=== PATIENT | female | born 1955 | race Caucasian/White ===

== ENCOUNTER → 2022-01-03 | Outpatient (CLI) | payer MEDICARE, OTHER, SELFPAY ==
--- NOTE | 2022-01-03 12:00 | US_ITS ---
STUDY: RENAL ULTRASOUND - COMPLETE REASON FOR EXAM: Female, 66 years old. UTI -- FREQUENCY -- URGENCY TECHNIQUE: Ultrasound evaluation of the kidneys was performed with real-time and static melgar-scale imaging. COMPARISON: None. FINDINGS: RIGHT KIDNEY: Normal location of the right kidney, which is normal in size. The right kidney measures 10.6 cm x 5.6 x 4.5 cm. There is a normal cortex of the right kidney. The renal cortex measures 1.4 cm. There is no right renal mass or cyst. There are no right renal calculi. There is an extra-renal pelvis of the right kidney. There is no distention of the renal calyces. DISTAL RIGHT URETER: There is non-visualization of the distal right ureter. There is no demonstrated right ureterovesical junction calculus. There is a visualized right ureteral jet. LEFT KIDNEY: Normal location of the left kidney, which is normal in size. The left kidney measures 10.4 cm x 5 cm x 5.9 cm. There is a normal cortex of the left kidney. The renal cortex measures 1.8 cm. There is no left renal mass or cyst. 3 mm nonobstructive calculus. There is no left hydronephrosis. DISTAL LEFT URETER: There is non-visualization of the distal left ureter. There is no demonstrated left ureterovesical junction calculus. There is a visualized left ureteral jet. BLADDER: The distended urinary bladder has a volume of 375.6 ml. The empty urinary bladder has a volume of 45 ml. There is a normal wall thickness of the distended urinary bladder. There is no demonstrated mass within the urinary bladder. There are no demonstrated bladder calculi. US/Kidney and Bladder IMPRESSION: 3 mm nonobstructive calculus in the left kidney. Electronically Signed: Orlin Seaman MD at 14:18 EDT ,
== END | disposition home or self-care (01) ==
PROVIDERS: PCP Internal Medicine Geriatric Medicine; Referring Provider Urology; Visit Provider Urology
DX: N39.0 Urinary tract infection, site not specified (principal)
CPT/HCPCS: 76770

== ENCOUNTER 2022-01-11 10:16 | Day surgery (SDC) | payer MEDICARE, OTHER, SELFPAY ==
--- NOTE | 2022-01-11 10:37 | DCINST_ITS ---
Discharge Instructions Diet Discharge Diet: No restrictions Activity Discharge Activity: Return to Normal Activity May resume sexual activity in: No Restrictions Dressing / Incision Call your doctor if you observe: Fever of 101 or Higher, Inability to urinate and Inability to have a bowel movement Follow Up Care Please Follow Up With: Lizeth Castillo MD When: call office for appt Test Results: Test results from this visit will be discussed in further detail at your follow- up appointment, if applicable. Discharge Plan Admission Attending Provider: Lizeth Castillo Primary Care Provider: Cesilia Hernandez Discharge Orders/Prescriptions Prescriptions: Continued meloxicam [Mobic] 15 mg Tablet 15 mg PO DAILY omeprazole 20 mg Capsule,Delayed Release(Dr/Ec) 20 mg PO DAILY rosuvastatin [Crestor] 5 mg Tablet 5 mg PO QHS cholecalciferol (vitamin D3) [Vitamin D3] 50 mcg (2,000 unit) Capsule 50 mcg PO DAILY acidophilus-pectin, citrus 100 million cell-10 mg Capsule 1 cap PO DAILY PreserVision AREDS-2 250-90-40-1 mg Capsule 2 tab PO DAILY Gemtesa 75 mg Tablet 75 mg PO DAILY Referrals / Follow Up: Cesilia Hernandez MD [Primary Care Provider] - Disposition Disposition (needs filled in before D/C Order can be placed): Home, Self Care
--- NOTE | 2022-01-11 10:38 | OP.PCM_ITS ---
Report of Operation Date of Procedure: 01/11/22 Pre-Operative Diagnosis: Urinary tract infections, overactive bladder, incontin ence and prolapse Post-Operative Diagnosis: Same Surgery/Procedure Performed:: Cystoscopy, pelvic exam under anesthesia Surgeon: Lizeth Castillo Type of Anesthesia: MAC Description of Procedure: The patient is a 66-year-old female with recurrent urinary tract infections, overactive bladder and incontinence. She is unable to undergo a cystoscopic evaluation in the office and presents for evaluation under anesthesia. Informed consent was obtained. The patient was taken to the operating room and placed onto the operating room table. Anesthesia monitored the head, neck, airway, IV access and vital signs throughout the case. Once anesthesia was appropriately ministered, the patient was placed into dorsal lithotomy position was prepped and draped in usual sterile fashion. Pelvic exam revealed stage 2 prolapse with cystocele, rectocele and vault prolapse. No evidence of pelvic mass, no stool palpable in the rectal vault, and there is vaginal atrophy present. The cystoscope was inserted through the urethra under direct visualization into the urinary bladder. The ureteral orifices were located in the correct anatomic position in the area of the trigone. The bladder mucosa was visualized in its entirety and found to be without evidence of mass, erythema, ulceration or foreign body. At this time the bladder was emptied and the case was terminated. The patient was awakened and taken to the recovery room in good condition. There were no complications during this procedure. Grafts/Implants Used: None Complications None Admit VTE Documentation VTE Present on Admission: Yes VTE Mechan Device Prophylaxis: SCD's VTE Pharm Prophylaxis ordered?: No Reason prophylaxis not ordered:: Treatment Not Indicated
[2022-01-11 10:45] VITALS: BP 143/88; PULSE 61; RESP 16; TEMP 36.2; O2SAT 100; BMI 33.0
[2022-01-11] MEDS: Lactated Ringers 1,000 ML 15 ML IV (10:48)
[2022-01-11] MEDS: Cefazolin 2 GM in 0.9% Normal Saline 100 ML IV (11:24)
[2022-01-11 11:35] LABS: Bedside Glucose 112 mg/dL (74-106)
[2022-01-11 11:45] VITALS: BP 109/50; BP 143/88; PULSE 62; RESP 16; TEMP 36.3; O2SAT 93
[2022-01-11 11:50] VITALS: BP 115/57; BP 143/88; PULSE 62; RESP 16; O2SAT 95
[2022-01-11 11:55] VITALS: BP 121/60; BP 143/88; PULSE 60; RESP 16; O2SAT 95
[2022-01-11 12:00] VITALS: BP 117/55; BP 143/88; PULSE 58; RESP 16; TEMP 36.4; O2SAT 95
[2022-01-11 12:17] VITALS: BP 143/88
== END 2022-01-11 12:26 | disposition home or self-care (01) ==
LOC: SDC 10:18 → AC 10:19
PROVIDERS: PCP Internal Medicine Geriatric Medicine; Referring Provider Urology; Visit Provider Urology
PROC: 0TJB8ZZ Inspection of Bladder, Via Natural or Artificial Opening Endoscopic (ICD-10-PCS; CPT 52000; principal; 2022-01-11 11:35)
DX: N39.0 Urinary tract infection, site not specified (principal); E11.9 Type 2 diabetes mellitus without complications; Z80.0 Family history of malignant neoplasm of digestive organs; N81.11 Cystocele, midline; N81.6 Rectocele; N39.41 Urge incontinence; N95.2 Postmenopausal atrophic vaginitis
CPT/HCPCS: 52000; 57410; 00910; 82962; J7120; J2405

== ENCOUNTER 2023-03-14 09:20 | Observation (INO) | payer MEDICARE, OTHER, SELFPAY ==
[2023-02-28 09:47] LABS: Hemoglobin A1c 6.6 % (3.8-5.6)
[2023-02-28 10:02] LABS: Anion Gap 4 (5-15); BUN 20 mg/dL (7-18); BUN/Creat Ratio 30.2 RATIO (10-20); Calcium,Total 9.3 mg/dL (8.5-10.1); Chloride 105 mmol/L (98-107); Creatinine, Serum 0.66 mg/dL (0.55-1.02); EST Glomerular Filtration Rate 95 mL/min (>60); Est Glom Filt Rate - Afr Amer 114 mL/min (>60); Glucose 170 mg/dL (74-106); Potassium 3.7 mmol/L (3.5-5.1); Sodium Level 137 mmol/L (136-145)
[2023-03-14] VITALS (15 sets, daily range): BP systolic 133–165; BP diastolic 56–91; PULSE 59–72; RESP 14–18; TEMP 36.1–37; O2SAT 92–97; BMI 34.9
--- NOTE | 2023-03-14 09:19 | OP.PCM_ITS ---
Report of Operation Date of Procedure: 03/14/23 Pre-Operative Diagnosis: Cystocele, rectocele, vaginal vault prolapse, urethral hypermobility with stress incontinence Post-Operative Diagnosis: Same Surgery/Procedure Performed:: posterior repair, bilateral sacrospinous ligament fixation with dermis, cystoscopy with bilateral ureteral catheterization Surgeon: Lizeth Castillo Type of Anesthesia: General Estimated Blood Loss (mL): 20 cc Description of Procedure: The patient is a 67-year-old female with pelvic organ prolapse who presents for surgical intervention. Informed consent and work-up were done in the office. The patient was taken to the operating room and placed on the operating room table. Anesthesia monitored the head, neck, airway, IV access and vital signs throughout the case. Once anesthesia was appropriately administered, the patient was placed into exaggerated dorsolithotomy and Trendelenburg position. She was prepped and draped in usual sterile fashion. A Waldron catheter was inserted to straight drain and the bladder was emptied. The biggest portion of her prolapse was identified posteriorly. It was decided to proceed there first with sacrospinous ligament fixation using dermis. A midline incision was made following submucosal injection of lidocaine with epinephrine. Blunt and sharp dissection was performed bilaterally until the ischial spines were palpable on both sides. On the patient's right side the ureter was easily palpable. Neither one of her sacrospinous ligaments were of significant size and there was a lot of surrounding soft tissue with vascularity. Very carefully I passed the suture through the sacrospinous ligaments using the Capio device. The ligaments were widely set apart and she did not have significant vault length available. The sutures were then brought through the dermis and through the vaginal mucosa at the apex bilaterally. These were tied into position and the dermis was sutured to the apex using interrupted 2-0 Vicryl. The perineal body was reconstructed and brought together in interrupted fashion using 3-0 PDS. The dermis was positioned and sutured in place circumferentially. The vaginal incision was then closed with running interlocking 2-0 Vicryl. At this time the Waldron catheter was removed and a cystourethroscopy was performed. The cystoscope was inserted through the urethra under direct visualization. Bilateral ureteral orifices were clearly visible in the correct anatomic position. A 5 [place] whistle-tip catheter was used to gently cannulate each ureteral orifice and it was advanced without difficulty on both sides to 20 cm without evidence of injury or obstruction. The midline of the bladder did not suggest a significant cystocele defect at this time. The anatomy anteriorly suggested that the patient would require further vault support for improvement in her anterior prolapse and I was not able to give her any further length via sacrospinous fixation. It was my opinion at this point that the bladder neck was well supported. The anterior repair and sling were not performed at this time. I feel she will be better served to have a sacrocolpopexy for any further improvement in her anterior pelvic support. At this time the cystoscope was removed and the Waldron catheter was reinserted. Her vagina was packed with Premarin cream and vaginal packing. She was awakened and taken to the recovery room in good condition. There were no complications during this procedure. Grafts/Implants Used: Dermis Complications None Admit VTE Documentation VTE Present on Admission: Yes VTE Mechan Device Prophylaxis: SCD's VTE Pharm Prophylaxis ordered?: Yes
[2023-03-14] MEDS: Lactated Ringers 1,000 ML 15 ML IV (09:30)
[2023-03-14 09:55] LABS: Bedside Glucose 118 mg/dL (74-106)
[2023-03-14] MEDS: Cefazolin 2 GM in 0.9% Normal Saline (100mL Bag) 100 ML IV (10:23)
[2023-03-14] MEDS: Lidocaine 1% /Epi 1:100 (20ml) 20 ML Vial (10:45)
[2023-03-14] MEDS: Estrogens,Conj. 1 Tube 1 DOSE (11:46)
[2023-03-14 13:20] LABS: Bedside Glucose 212 mg/dL (74-106)
[2023-03-14] MEDS: Lactated Ringers 1,000 ML 100 ML IV (17:03)
[2023-03-14] MEDS: Ciprofloxacin 500 MG Tablet PO ×2 (17:04→22:04)
[2023-03-14] MEDS: Pantoprazole Sodium 20 MG Tablet PO (17:04)
[2023-03-14] MEDS: Meloxicam 15 MG Tablet PO (17:04)
[2023-03-14] MEDS: metFORMIN HCl 500 MG Tablet 1000 MG PO (17:11)
[2023-03-14] MEDS: Cefazolin 1 GM/50 ML BAG IV (18:23)
[2023-03-14] MEDS: Atorvastatin Calcium 10 MG Tablet PO (22:04)
[2023-03-15 01:14] VITALS: BP 138/57; PULSE 64; RESP 16; TEMP 36.4; O2SAT 95
[2023-03-15] MEDS: Cefazolin 1 GM/50 ML BAG IV (01:19)
[2023-03-15] MEDS: Lactated Ringers 1,000 ML 100 ML IV (04:13)
[2023-03-15 06:04] VITALS: BP 128/81; PULSE 66; RESP 16; TEMP 36.6; O2SAT 97
[2023-03-15] MEDS: Enoxaparin 40 MG/0.4 ML Syringe SC (06:10)
[2023-03-15 06:36] LABS: Hematocrit 38.3 % (37-47); Hemoglobin 12.7 g/dL (12.0-15.0); Mean Corp Hgb Conc 33.2 g/dL (32-36); Mean Corpuscular Hgb 28.7 pg (27.0-32.0); Mean Corpuscular Volume 86.7 fL (81-99); Mean Platelet Vol. 11.2 fl (6.2-12.0); Platelet Count 186 K/mm3 (150-450); RBC Distribution Width CV 12.2 % (11.6-14.6); RBC Distribution Width SD 38.9 fl (35.1-43.9); Red Blood Count 4.42 M/mm3 (4.2-5.4); White Blood Count 12.1 K/mm3 (4.4-11.0)
[2023-03-15 06:59] LABS: Anion Gap 8 (5-15); BUN 11 mg/dL (7-18); BUN/Creat Ratio 19.3 RATIO (10-20); Calcium,Total 8.4 mg/dL (8.5-10.1); Chloride 107 mmol/L (98-107); Creatinine, Serum 0.57 mg/dL (0.55-1.02); EST Glomerular Filtration Rate 112 mL/min (>60); Est Glom Filt Rate - Afr Amer 136 mL/min (>60); Estimated Creatinine Clearance 43.77 ml/min; Glucose 158 mg/dL (74-106); Potassium 3.7 mmol/L (3.5-5.1); Sodium Level 139 mmol/L (136-145)
--- NOTE | 2023-03-15 07:58 | DCINST_ITS ---
Discharge Instructions Diet Discharge Diet: No restrictions Activity Discharge Activity: May Shower May resume sexual activity in: 8 weeks Lifting Restrictions: No strenuous activity, no lifting over 5 pounds, no driving Additional Activity Instructions:: No swimming, hot tubs, tub bathing or sexual activity Dressing / Incision Call your doctor if your incision/area has: Continuous Slow Oozing, Sudden Increased Bleeding, Increased Pain/ Swelling and Foul Smelling Discharge Call your doctor if you observe: Fever of 101 or Higher, Inability to urinate and Inability to have a bowel movement Follow Up Care Please Follow Up With: Lizeth Castillo MD When: The office will call to make follow-up arrangements Test Results: Test results from this visit will be discussed in further detail at your follow- up appointment, if applicable. Discharge Plan Admission Admit Date/Time: 03/14/23 09:20 Attending Provider: Lizeth Castillo Primary Care Provider: Cesilia Hernandez Discharge Orders/Prescriptions Prescriptions: New hydrocodone-acetaminophen [hydrocodone-acetaminophen] 5-325 mg tablet 1 tab PO Q8H PRN (Reason: Pain) 7 Days Qty: 15 0RF ciprofloxacin HCl [ciprofloxacin HCl] 500 mg tablet 500 mg PO BID Qty: 6 0RF Continued meloxicam [Mobic] 15 mg Tablet 15 mg PO DAILY omeprazole 20 mg Capsule,Delayed Release(Dr/Ec) 20 mg PO DAILY rosuvastatin [Crestor] 5 mg Tablet 5 mg PO QHS cholecalciferol (vitamin D3) [Vitamin D3] 50 mcg (2,000 unit) Capsule 50 mcg PO DAILY acidophilus-pectin, citrus 100 million cell-10 mg Capsule 1 cap PO DAILY PreserVision AREDS-2 250-90-40-1 mg Capsule 2 tab PO DAILY Gemtesa 75 mg Tablet 75 mg PO DAILY coenzyme Q10 [Co Q-10] 100 mg capsule 100 mg PO DAILY metformin 500 mg tablet 1,000 mg PO DAILY cephalexin 500 mg capsule 500 mg PO Q8H Patient Comments: TAKE 1 CAPSULE BY MOUTH THREE TIMES DAILY prevagen 1 tab PO DAILY Referrals / Follow Up: Cesilia Hernandez MD [Primary Care Provider] - Disposition Disposition (needs filled in before D/C Order can be placed): Home, Self Care
[2023-03-15 09:02] VITALS: BP 135/74; PULSE 68; RESP 18; TEMP 36.5; O2SAT 97
[2023-03-15] MEDS: metFORMIN HCl 500 MG Tablet 1000 MG PO (09:05)
[2023-03-15] MEDS: Pantoprazole Sodium 20 MG Tablet PO (09:05)
[2023-03-15] MEDS: Meloxicam 15 MG Tablet PO (09:05)
[2023-03-15] MEDS: Ciprofloxacin 500 MG Tablet PO (09:05)
--- NOTE | 2023-03-15 14:37 | CASEMGMT ---
Social Work SW met with pt and discussed advance directives. Pt requesting additional information. SW explained living will and health care power of divorce attorney and provided written information and Advance Directive Rack Card. Pt appreciative of information and will consider. No further needs at this time. PHYLLIS Phipps
--- NOTE | 2023-03-15 14:39 | CASEMGMT ---
ELIZABETH CM in to discuss NUÑEZ form with patient. RN CM explained NUÑEZ form, patient voiced understanding. Pt signed form and filed in chart. Pt provided with a copy of signed NUÑEZ form. Patient had no further questions or concerns at this time.
[2023-03-15 15:53] VITALS: BP 137/63; PULSE 79; RESP 18; TEMP 36.6; O2SAT 97
== END 2023-03-15 16:03 | disposition home or self-care (01) ==
LOC: SDC 15:03 → MS3 15:03
PROVIDERS: Anesthesiology; Admitting Provider Urology; PCP Internal Medicine Geriatric Medicine; Referring Provider Urology; Visit Provider Urology
PROC: (CPT 57260; principal; 2023-03-14 10:00)
DX: N99.3 Prolapse of vaginal vault after hysterectomy (principal); E11.9 Type 2 diabetes mellitus without complications; N39.3 Stress incontinence (female) (male); N36.41 Hypermobility of urethra; N32.81 Overactive bladder; Z79.84 Long term (current) use of oral hypoglycemic drugs; Z79.899 Other long term (current) drug therapy
CPT/HCPCS: 57282; 57250; 00860; 36415; 80048; 82962; 83036; 85027; 93005; 96361; 96365; 96366; 96372; 99221; J7120; C1758; G0378; J2405

== ENCOUNTER → 2024-03-25 | Outpatient (CLI) | payer MEDICARE, OTHER, SELFPAY ==
[2024-03-25 12:22] LABS: Hematocrit 40.2 % (37-47); Hemoglobin 12.7 g/dL (12.0-15.0); Mean Corp Hgb Conc 31.6 g/dL (32-36); Mean Corpuscular Hgb 27.7 pg (27.0-32.0); Mean Corpuscular Volume 87.8 fL (81-99); Platelet Count 210 K/mm3 (150-450); RBC Distribution Width CV 13.3 % (11.6-14.6); RBC Distribution Width SD 42.8 fl (35.1-43.9); Red Blood Count 4.58 M/mm3 (4.2-5.4); White Blood Count 6.1 K/mm3 (4.4-11.0)
[2024-03-25 12:54] LABS: Anion Gap 8 (5-15); BUN 14 mg/dL (7-18); BUN/Creat Ratio 24.1 RATIO (10-20); Chloride 107 mmol/L (98-107); Creatinine, Serum 0.58 mg/dL (0.55-1.02); EST Glomerular Filtration Rate 110 mL/min (>60); Est Glom Filt Rate - Afr Amer 133 mL/min (>60); Glucose 121 mg/dL (74-106); Potassium 3.9 mmol/L (3.5-5.1); Sodium Level 138 mmol/L (136-145)
== END | disposition home or self-care (01) ==
LOC: MTLAB 09:35
PROVIDERS: PCP Internal Medicine Geriatric Medicine; Referring Provider Urology; Visit Provider Urology
DX: N10 Acute pyelonephritis (principal)
CPT/HCPCS: 36415; 80048; 85027

== ENCOUNTER 2024-04-03 07:33 | Observation (INO) | payer MEDICARE, OTHER, SELFPAY ==
--- NOTE | 2024-03-17 08:46 | EKG12_ITS ---
Test Reason : PREOP Blood Pressure : */* mmHG Vent. Rate : 68 BPM Atrial Rate : 68 BPM P-R Int : 154 ms QRS Dur : 86 ms QT Int : 402 ms P-R-T Axes : 42 17 38 degrees QTcB Int : 427 ms Normal sinus rhythm Low voltage QRS Borderline ECG Confirmed by ZULY VELÁSQUEZ, KULDEEP ([id number]), commissioning editor KIT GONZALEZ ([id number]) on 03/18/2024 8:47:00 AM Referred By: Lizeth Castillo Confirmed By: KULDEEP CARUSO MD
[2024-03-17 09:23] LABS: Hematocrit 40.2 % (37-47); Hemoglobin 12.7 g/dL (12.0-15.0); Mean Corp Hgb Conc 31.6 g/dL (32-36); Mean Corpuscular Hgb 27.9 pg (27.0-32.0); Mean Corpuscular Volume 88.2 fL (81-99); Platelet Count 213 K/mm3 (150-450); RBC Distribution Width CV 13.7 % (11.6-14.6); RBC Distribution Width SD 44.4 fl (35.1-43.9); Red Blood Count 4.56 M/mm3 (4.2-5.4); White Blood Count 5.6 K/mm3 (4.4-11.0)
[2024-03-17 09:52] LABS: Anion Gap 5 (5-15); BUN 17 mg/dL (7-18); BUN/Creat Ratio 28.4 RATIO (10-20); Calcium,Total 9.4 mg/dL (8.5-10.1); Chloride 110 mmol/L (98-107); EST Glomerular Filtration Rate 106 mL/min (>60); Est Glom Filt Rate - Afr Amer 128 mL/min (>60); Glucose 106 mg/dL (74-106); Potassium 4.6 mmol/L (3.5-5.1); Sodium Level 142 mmol/L (136-145)
[2024-03-17 11:33] LABS: Hemoglobin A1c 6.1 % (3.8-5.6)
[2024-04-03] VITALS (22 sets, daily range): BP systolic 107–150; BP diastolic 49–78; PULSE 63–79; RESP 16–18; TEMP 36.1–36.9; O2SAT 91–100; BMI 34.7
[2024-04-03] MEDS: Lactated Ringers 1,000 ML 15 ML IV ×2 (06:17→11:16)
[2024-04-03 06:44] LABS: Bedside Glucose 127 mg/dL (74-106)
--- NOTE | 2024-04-03 06:45 | PCM.PRE.AN2 ---
ASA Classification* ASA Classification ASA Classification: 2 Assessment & Plan Anesthesia* Anesthesia Assessment Anesthesia Assessment: Discussed sedation and/or anesthesia options, risks, benefits, and alternatives with patient/parents/legal guardian/POA. Questions invited. The patient/parents/legal guardian/POA seems to understand and agrees to proceed with anesthesia plan. Reviewed the physical assessment, medical history, allergy history and patient home medications list prior to surgery/procedure/anesthetic and documented any changes. Performed airway and anesthesia risk assessments. Anesthesia Type Anesthesia Type: General Anesthesia Focused Assessment* Temperature: 97.1 F Pulse Rate: 74 Blood Pressure: 149/78 Respiratory Rate: 16 Pulse Ox: 96 Airway Assessment Mouth opens: >3 cm Mallampati Score: II Focused Labs Anesthesia Preop lab: CBC WBC 6.1 K/mm3 (4.4-11.0) 03/25/24 09:43 RBC 4.58 M/mm3 (4.2-5.4) 03/25/24 09:43 Hgb 12.7 g/dL (12.0-15.0) 03/25/24 09:43 Hct 40.2 % (37-47) 03/25/24 09:43 Plt Count 210 K/mm3 (150-450) 03/25/24 09:43 CHEMISTRY Potassium 3.9 mmol/L (3.5-5.1) 03/25/24 09:43 Sodium 138 mmol/L (136-145) 03/25/24 09:43 BUN 14 mg/dL (7-18) 03/25/24 09:43 Creatinine 0.58 mg/dL (0.55-1.02) 03/25/24 09:43 Glucose 121 mg/dL (74-106) H 03/25/24 09:43 POC Glucose 127 mg/dL (74-106) H 04/03/24 06:08 TSH 5.550 uIU/mL (0.358-3.740) H 03/17/24 08:46 COAG Pre-Assessment Diagnosis/Proposed Procedure Planned Operative Procedure(s): Anterior repair, Bilateral SSLF with Dermis, Cysto, Bilateral ureteral catheter insertion Anesthesia History 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 When Was Last Pacemaker Check QUESTION #4 FULL TEXT: You/Your Family Experience fever (hyperthermia) with Anesthesia Last Oral Intake Last Oral intake: Last Oral Intake NPO since 05:00 04/03/24 06:19 Meds taken in AM with sips of Yes 04/03/24 06:19 water? Meds patient instructed to omeprazole, hydralazine 04/03/24 06:19 take am of surgery PONV PONV - air route traffic controller: PONV - air route traffic controller Female Yes 03/12/24 08:29 HX of Motion Sickness No 03/12/24 08:29 HX of N/V After Surgery No 03/12/24 08:29 Non-Smoker Yes 03/12/24 08:29 Duration of Surgery greater Yes 03/12/24 08:29 than 60 minutes Number of Risk Factors 3 03/12/24 08:29 PONV Score Moderate Risk 03/12/24 08:29 Height & Weight Height & Weight: Anesthesia: Height & Weight Height 5 ft 2 in 04/03/24 06:19 Weight: 86 kg 04/03/24 06:19 Body Mass Index (BMI) 34.7 04/03/24 06:19 Respiratory Assessment Respiratory Assessment - air route traffic controller: Respiratory Tract Infection Hx - air route traffic controller Hx Respiratory Tract Infection No 03/12/24 08:29 STOP Sleep Apnea STOP Sleep Apnea - air route traffic controller: STOP Sleep Apnea - air route traffic controller Hx Hypertension Yes: CONTROLLED WITH MED 03/12/24 08:29 Hx Sleep Apnea No 03/12/24 08:29 CPAP BIPAP Do you snore loudly (louder No 03/12/24 08:29 than talking or can be heard Do you often feel tired/ No 03/12/24 08:29 fatigued/ sleepy during daytime? Has anyone observed you stop No 03/12/24 08:29 breathing during sleep? STOP Results Negative 03/12/24 08:29 QUESTION #5 FULL TEXT : Do you snore loudly (louder than talking or can be heard through closed doors)? 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 Specify any problems Hx of Preganancy in last 3 N/A 03/12/24 08:29 Months Nurse Filling Out Transfusion NBUCHER 03/12/24 08:29 & Questions: Date: 03/12/24 03/12/24 08:29 Time: 08:31 03/12/24 08:29 Patient unable to answer at this time (ie. confused, unrespo /Reproduction History /Reproductive History - air route traffic controller: /Reproductive Hx- air route traffic controller Hx Now No 03/12/24 08:29 Gestational Age (in weeks): EDC: Hx Hx Para Hx Section SAB No 03/12/24 08:29 Active Medications Active Medications: Current Medications Generic Name Dose Route Start Last Admin Trade Name Freq PRN Reason Stop Dose Admin Cefazolin Sodium 2 gm/ N/A 20 mls @ 400 mls/hr 04/03/24 07:30 IV 04/03/24 07:32 PREOP ONE Lactated Ringer's 1,000 mls @ 15 mls/hr 04/03/24 06:00 04/03/24 06:17 IV 04/08/24 19:19 15 mls/hr .Q48H KEVIN Administration Protocol PFSH Medical History Thyroid disease Cancer Hypertension Cystocele and rectocele with complete uterovaginal prolapse Rectocele Post-menopausal Syncope Dietary restriction Wears glasses Wears partial dentures Diabetes Arthritis Bladder disease High cholesterol Restless legs History of hiatal hernia Diverticulosis Gastric reflux Non-smoker Leg cramps History of pain when walking Home Medications ?Medication ?Instructions ?Recorded ?Last Taken ?Type acidophilus 100 million 1 cap PO DAILY 01/09/22 04/02/24 History cell-pectin, citrus 10 mg capsule meloxicam 15 mg tablet (Mobic) 15 mg PO DAILY 01/09/22 03/20/24 History omeprazole 20 mg capsule,delayed 20 mg PO DAILY 01/09/22 04/03/24 History release rosuvastatin 5 mg tablet (Crestor) 5 mg PO QHS 01/09/22 04/02/24 History vibegron 75 mg tablet (Gemtesa) 75 mg PO DAILY 01/09/22 04/02/24 History vit C 250 mg-vit E 90 mg-zinc 40 2 tab PO DAILY 01/09/22 04/02/24 History mg-copper 1 [id number] capsule (PreserVision AREDS-2) coenzyme Q10 100 mg capsule (Co 100 mg PO DAILY 02/26/23 04/02/24 History Q-10) metformin 500 mg tablet 1,000 mg PO DAILY 02/26/23 03/13/23 History prevagen 1 tab PO DAILY 03/14/23 04/02/24 History glimepiride 1 mg tablet 1 mg PO DAILY 03/12/24 04/02/24 History hydralazine 25 mg tablet 25 mg PO BID 03/12/24 04/03/24 History Allergy/AdvReac Type Severity Reaction Status Date / Time prednisone Allergy Rash Verified 04/03/24 06:15 oxycodone AdvReac Intermediate Other Verified 04/03/24 06:15 Surgical History History of thyroidectomy History of bladder repair surgery (~02/2023) History of cystoscopy Hx of total knee arthroplasty History of esophagogastroduodenoscopy (EGD) Hx of colonoscopy Hx of tubal ligation Hx of hysterectomy Social History Smoking Status: Never smoker Review of Systems (Anesthesia) ROS Narrative System reviewed and no additional complaints, except as documented.
[2024-04-03] MEDS: Cefazolin 2 GM in Syringe IV (07:35)
--- NOTE | 2024-04-03 07:41 | OP.PCM_ITS ---
Operative Report (Standard) Operative Information Surgery/Procedure Performed: Anterior repair, bilateral sacrospinous ligament fixation with dermis, cystoscopy with bilateral ureteral catheterization Surgeon: Lizeth Castillo Date of Procedure: 04/03/24 Procedure Start Time: 07:55 Procedure Stop Time: 09:12 Pre-Operative Diagnosis: cystocele, vaginal vault prolapse Post-Operative Diagnosis: same Select all DRAINS/GRAFTS/IMPLANTS that apply: Graft Graft details: Dermis autologous graft Type of Anesthesia: General Estimated Blood Loss: 25 cc Specimen collected: No Description of surgery: The patient is a 68-year-old female who had a posterior repair with sacrospinous ligament fixation at the time of her hysterectomy. She subsequently developed an anterior defect and anterior vault prolapse. She now presents for surgical intervention for this. Informed consent was obtained. The patient was taken to the operating room and placed on the operating room table. Anesthesia monitored the head, neck, airway, IV access and vital signs throughout the case. Once anesthesia was appropriately administered, she was placed into exaggerated dorsolithotomy position and was prepped and draped in usual sterile fashion. A 16 [place] Waldron catheter was inserted into the bladder which was drained. The anterior vaginal wall was isolated and injected submucosally with 1% lidocaine with epinephrine for hydrostatic dissection and hemostatic control. A midline vertical incision was made approximately 2 cm in length. Sharp and blunt dissection was performed bilaterally in full-thickness fashion. The anterior vaginal wall was very thin but did not tear. Dissection continued bilaterally down to the ischial spines bilaterally. The sacrospinous ligaments were cleared from the surrounding tissue. There were no overlying structures consistent with the ureter. Using the saffron device a 2-0 Ethibond was passed into the sacrospinous ligament on each side. This suture was then brought through full- thickness fashion the piece of dermis that was cut to width. In the midline, the dermis was sutured to the cuff line and full-thickness using 2-0 Vicryl. The Ethibonds were then tied into position with the dermis being tensioned down to the sacrospinous ligaments bilaterally. At this time the prolapse was reduced. The other end of the dermis was trimmed and was sutured to the vaginal mucosa at the 12 o'clock position. The Ethibond was then brought through the vaginal mucosa in full-thickness fashion bilaterally at the apex using a free needle. The patient was then taken out of Trendelenburg and the Waldron catheter was removed. The cystoscope was inserted through the urethra under direct visualization into the urinary bladder. There was no evidence of injury as the mucosa was visualized in its entirety. The ureteral orifices were located in the correct anatomic position. A 5 [place]yan whistle-tip catheter was used to cannulate first the left ureteral orifice and then the right. On both sides the whistle-tip catheter easily advanced to 20 cm without evidence of obstruction or injury. The catheter was then removed with the cystoscope. The Waldron catheter was reinserted and the balloon was inflated with 10 cc of sterile water. The midline incision was closed with running interlocking 2-0 Vicryl. The Ethibond was tied into position bilaterally. The catheter was once again removed and the cystoscope was inserted through the urethra to ensure that nothing changed with closing. Once again no bladder injury was identified and bilaterally the ureters showed no evidence of injury with extension of the whistle-tip catheter. The cystoscope was then removed and the Waldron catheter was once again replaced. The vagina was packed with estrogen cream and packing. She was awakened and taken to the recovery room in good condition. There were no complications during this procedure. 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
--- NOTE | 2024-04-03 07:41 | DCINST_ITS ---
Discharge Instructions Diet Discharge Diet: No restrictions and - (MiraLAX up to hourly until BM. Okay to start with 3 capfuls daily. Colace 100 mg 3 times daily, senna 1 dose daily.) Activity Discharge Activity: May Not Drive (for 2 weeks), May Shower and - (Okay to go up and down steps. Urinate every 2 hours during the daytime) May resume sexual activity in: 8 weeks Lifting Restrictions: 5 pounds Additional Activity Instructions:: No strenuous activity or exercise, no tub bathing, hot tubs or swimming, no vacuuming Dressing / Incision Call your doctor if your incision/area has: Continuous Slow Oozing, Sudden Increased Bleeding, Increased Pain/ Swelling and Foul Smelling Discharge Call your doctor if you observe: Fever of 101 or Higher, Inability to urinate and Inability to have a bowel movement Suture Line Care: Avoid Pulling/Pushing (With more than 5 pounds of pressure) Follow Up Care Please Follow Up With: Lizeth Castillo MD When: The office will call to make arrangements. Test Results: Test results from this visit will be discussed in further detail at your follow- up appointment, if applicable. Discharge Plan Admission Admit Date/Time: 04/03/24 07:33 Attending Provider: Lizeth Castillo Primary Care Provider: Cesilia Hernandez Discharge Orders/Prescriptions Prescriptions: New tramadol 50 mg Tablet 50 mg PO TID PRN PRN (Reason: Pain Score 1-5) 3 Days Qty: 10 0RF cephalexin 500 mg Capsule 500 mg PO BID 3 Days Qty: 6 0RF ondansetron 8 mg tablet,disintegrating 8 mg PO Q8H PRN (Reason: nausea and vomiting) Qty: 10 0RF tramadol 50 mg tablet 50 mg PO Q8H PRN (Reason: pain) 3 Days Qty: 10 0RF cephalexin 500 mg capsule 500 mg PO Q12 3 Days Qty: 6 0RF Continued meloxicam [Mobic] 15 mg Tablet 15 mg PO DAILY omeprazole 20 mg Capsule,Delayed Release(Dr/Ec) 20 mg PO DAILY rosuvastatin [Crestor] 5 mg Tablet 5 mg PO QHS acidophilus-pectin, citrus 100 million cell-10 mg Capsule 1 cap PO DAILY PreserVision AREDS-2 250-90-40-1 mg Capsule 2 tab PO DAILY Gemtesa 75 mg Tablet 75 mg PO DAILY coenzyme Q10 [Co Q-10] 100 mg capsule 100 mg PO DAILY metformin 500 mg tablet 1,000 mg PO DAILY prevagen 1 tab PO DAILY hydralazine 25 mg tablet 25 mg PO BID glimepiride 1 mg tablet 1 mg PO DAILY No Action polyethylene glycol 3350 [Miralax] 17 gram/dose powder 17 g PO DAILY PRN (Reason: constipation) Other Ambulatory Orders: 12 Lead EKG (Routine) Timeframe: 20240317 Location: None Selected Ordered By: Dr. Dougie Black Referrals / Follow Up: Cesilia Hernandez MD [Primary Care Provider] - Disposition Disposition (needs filled in before D/C Order can be placed): Home, Self Care
[2024-04-03] MEDS: Lidocaine 1% /Epi 1:100 (20ml) 20 ML Vial (07:56)
[2024-04-03] MEDS: Estrogens,Conj. 1 Tube 1 DOSE (09:10)
--- NOTE | 2024-04-03 10:05 | PCM.POST.ANE ---
Anesthesia: Postop Eval I Current Vital Signs Temperature: 97 F Pulse Rate: 73 Blood Pressure: 134/56 Respiratory Rate: 16 Pulse Ox: 97 Oxygen Delivery Method: Room Air Assessment Airway patent: Yes Spontaneous unlabored respirations: Yes Mental status: Awake and Calm nausea: No Vomiting: No Anesthesia Complication: No Fluid Hydration Crystalloid volume administer (ml): 900 Total IV fluid infused: 900 Progress Note Anesthesia document: Postop Eval 1 completed: Yes
--- NOTE | 2024-04-03 11:05 | POSTOPAN2_ITS ---
Anesthesia Postop Eval I Sum Postop Eval Completion status Anesthesia document: Postop Eval 1 completed: Yes Anesthesia Postop Eval I Summary Anesthesia Postop Eval I Summary: Anesthesia Postop Eval I: Assessment Summary Airway patent Yes 04/03/24 10:05 INFORMATION TECHNOLOGY INTERN.MDOT Spontaneous unlabored Yes 04/03/24 10:05 INFORMATION TECHNOLOGY INTERN.MDOT respirations Mental status Awake,Calm 04/03/24 10:05 INFORMATION TECHNOLOGY INTERN.MDOT nausea No 04/03/24 10:05 INFORMATION TECHNOLOGY INTERN.MDOT Vomiting No 04/03/24 10:05 INFORMATION TECHNOLOGY INTERN.MDOT Anesthesia Postop Eval I: Fluid Summary Crystalloid volume administer 900 04/03/24 10:05 INFORMATION TECHNOLOGY INTERN.MDOT (ml) Colloids volume administered ( ml) Blood Product volume administered (ml) Total IV fluid infused 900 04/03/24 10:05 INFORMATION TECHNOLOGY INTERN.MDOT Anesthesia Postop Eval I: Summary Notes Anesthesia Complication No 04/03/24 10:05 INFORMATION TECHNOLOGY INTERN.MDOT Anesthesia Complication Comment: Post-operative progress note Anesthesia: Postop Eval II Evaluation Mental status: Awake Pain Level: 0 nausea: No Vomiting: No
--- NOTE | 2024-04-03 11:05 | PCM.POSTANE2 ---
Anesthesia Postop Eval I Sum Postop Eval Completion status Anesthesia document: Postop Eval 1 completed: Yes Anesthesia Postop Eval I Summary Anesthesia Postop Eval I Summary: Anesthesia Postop Eval I: Assessment Summary Airway patent Yes 04/03/24 10:05 CUSTOMER CARE TEAM COACH.MDOT Spontaneous unlabored Yes 04/03/24 10:05 CUSTOMER CARE TEAM COACH.MDOT respirations Mental status Awake,Calm 04/03/24 10:05 CUSTOMER CARE TEAM COACH.MDOT nausea No 04/03/24 10:05 CUSTOMER CARE TEAM COACH.MDOT Vomiting No 04/03/24 10:05 CUSTOMER CARE TEAM COACH.MDOT Anesthesia Postop Eval I: Fluid Summary Crystalloid volume administer 900 04/03/24 10:05 CUSTOMER CARE TEAM COACH.MDOT (ml) Colloids volume administered ( ml) Blood Product volume administered (ml) Total IV fluid infused 900 04/03/24 10:05 CUSTOMER CARE TEAM COACH.MDOT Anesthesia Postop Eval I: Summary Notes Anesthesia Complication No 04/03/24 10:05 CUSTOMER CARE TEAM COACH.MDOT Anesthesia Complication Comment: Post-operative progress note Anesthesia: Postop Eval II Evaluation Mental status: Awake Pain Level: 0 nausea: No Vomiting: No
[2024-04-03] MEDS: Pantoprazole Sodium 20 MG Tablet PO (14:52)
[2024-04-03] MEDS: Cephalexin 500 MG Capsule PO ×2 (14:52→22:40)
[2024-04-03] MEDS: Meloxicam 15 MG Tablet PO (14:52)
[2024-04-03] MEDS: hydrALAZINE 25 MG Tablet PO ×2 (14:52→22:39)
[2024-04-03] MEDS: Polyethylene Glycol 3350 17 GM PACKET PO (14:57)
[2024-04-03] MEDS: traMADol 50 MG Tablet PO ×2 (15:43→22:39)
[2024-04-03] MEDS: metFORMIN HCl 1,000 MG Tablet 1000 MG PO (17:45)
[2024-04-03] MEDS: Atorvastatin Calcium 10 MG Tablet PO (22:40)
[2024-04-04 03:53] VITALS: BP 111/49; PULSE 75; RESP 16; TEMP 36.7; O2SAT 97
[2024-04-04] MEDS: Enoxaparin 40 MG/0.4 ML Syringe SC (06:53)
[2024-04-04] MEDS: traMADol 50 MG Tablet PO (06:56)
[2024-04-04 06:57] VITALS: BP 130/53; PULSE 76; RESP 16; TEMP 36.3; O2SAT 97
[2024-04-04 07:18] LABS: Hematocrit 38.8 % (37-47); Mean Corp Hgb Conc 33.5 g/dL (32-36); Mean Corpuscular Volume 86.4 fL (81-99); Platelet Count 210 K/mm3 (150-450); RBC Distribution Width CV 13.2 % (11.6-14.6); RBC Distribution Width SD 40.9 fl (35.1-43.9); Red Blood Count 4.49 M/mm3 (4.2-5.4); White Blood Count 11.7 K/mm3 (4.4-11.0)
[2024-04-04 07:52] LABS: Bedside Glucose 138 mg/dL (74-106)
[2024-04-04 08:00] VITALS: O2SAT 96
[2024-04-04 08:09] LABS: Anion Gap 7 (5-15); BUN 13 mg/dL (7-18); BUN/Creat Ratio 18.7 RATIO (10-20); Calcium,Total 8.8 mg/dL (8.5-10.1); Chloride 102 mmol/L (98-107); EST Glomerular Filtration Rate 89 mL/min (>60); Est Glom Filt Rate - Afr Amer 108 mL/min (>60); Estimated Creatinine Clearance 69.44 ml/min; Glucose 131 mg/dL (74-106); Potassium 3.7 mmol/L (3.5-5.1); Sodium Level 135 mmol/L (136-145)
[2024-04-04 08:24] VITALS: BP 127/57; PULSE 74; RESP 18; TEMP 36.7; O2SAT 96
--- NOTE | 2024-04-04 08:41 | PCM.PN.GU ---
Subjective Subjective No issues overnight. There is some discomfort in the right buttocks. Tolerating PO and has been out of bed. Objective Data Objective Data Vital Signs: Vital Signs Temp Pulse Resp BP Pulse Ox O2 Del Method O2 Flow Rate 98.1 F 74 18 127/57 H 96 Room Air 2 04/04/24 08:24 04/04/24 08:24 04/04/24 08:24 04/04/24 08:24 04/04/24 08:24 04/04/24 08:25 04/03/24 13:52 Oxygen Flow Rate (L/min) 2 Oxygen Delivery Method Room Air Weight: 86 kg Body Mass Index (BMI) 34.7 Intake & Output: Intake and Output for Last 24 Hours 04/02/24 04/03/24 04/04/24 23:59 23:59 23:59 Intake Total 1320.25 / 1320.25 200 / 200 Output Total 1350 / 1350 350 / 350 Balance -29.75 / -29.75 -150 / -150 Lab / Micro Data 04/04/24 06:52 04/04/24 06:52 Labs: Laboratory Results - last 24 hr 04/04/24 06:52: WBC 11.7 H, RBC 4.49, Hgb 13.0, Hct 38.8, MCV 86.4, MCH 29.0, MCHC 33.5, RDW Std Deviation 40.9, RDW Coeff of Jared 13.2, Plt Count 210, MPV 11.0, Sodium 135 L, Potassium 3.7, Chloride 102, Carbon Dioxide 26.0, Anion Gap 7, BUN 13, Creatinine 0.70, Estim Creat Clear Calc 69.44, Est GFR (MDRD) Af Amer 108, Est GFR (MDRD) Non-Af 89, BUN/Creatinine Ratio 18.7, Glucose 131 H, Calcium 8.8 04/04/24 07:34: POC Glucose 138 H Physical Exam Const alert, oriented x3 and no apparent distress Chest inspection of chest normal Resp normal respiratory effort, normal air movement and no retractions Cardio regular rate GI soft to palpation and non-tender Narrative: urine clear in ely. Catheter and packing removed without incident. The pain in the right pelvis improved with removal of the vaginal packing. Extremity no calf tenderness Extremity Narrative: SCD's in place. Neuro oriented x3 and CN's II-XII intact bilaterally Assessment & Plan Assessment/Plan (1) Cystocele, midline: PLAN: trial of void home later today post op restrictions discussed office will call for follow up appointment
[2024-04-04 09:01] VITALS: BP 127/57; PULSE 74
[2024-04-04] MEDS: hydrALAZINE 25 MG Tablet PO (09:01)
[2024-04-04] MEDS: Polyethylene Glycol 3350 17 GM PACKET PO (09:02)
[2024-04-04] MEDS: Pantoprazole Sodium 20 MG Tablet PO (09:02)
[2024-04-04] MEDS: Meloxicam 15 MG Tablet PO (09:02)
[2024-04-04] MEDS: Glimepiride 1 MG Tablet PO (09:02)
[2024-04-04] MEDS: Cephalexin 500 MG Capsule PO (09:02)
--- NOTE | 2024-04-04 10:30 | CASEMGMT ---
Met with pt to complete NUÑZE form. NUÑEZ form explained to pt at this time who voiced understanding and signed form. Original form placed in pt?s chart and copy provided to the pt. Also discussed DC planning. Pt states that she lives with her and that she is independent. Pt states that her will be able to drive the pt home today after he gets off work. Pt denies needs including HH or OP Tx. Pt states that she feels safe returning home today and denies further questions or concerns. Mc Palmer RN CM
== END 2024-04-04 14:00 | disposition home or self-care (01) ==
LOC: MS3 09:49 → SDC 13:59 → MS3 13:59
PROVIDERS: Anesthesiology; Admitting Provider Urology; PCP Internal Medicine Geriatric Medicine; Referring Provider Urology; Visit Provider Urology
PROC: (CPT 57260; principal; 2024-04-03 07:15)
DX: N81.11 Cystocele, midline (principal); E11.9 Type 2 diabetes mellitus without complications; Z79.899 Other long term (current) drug therapy; Z79.84 Long term (current) use of oral hypoglycemic drugs; N76.0 Acute vaginitis; N95.2 Postmenopausal atrophic vaginitis; N39.41 Urge incontinence; N32.81 Overactive bladder; N10 Acute pyelonephritis; Z79.890 Hormone replacement therapy; E07.9 Disorder of thyroid, unspecified
CPT/HCPCS: 57240; 00942; 36415; 80048; 82962; 83036; 84443; 85027; 93005; 94668; 96372; 99221; C1758; G0378; J2405

== ENCOUNTER 2024-04-16 09:54 | Day surgery (SDC) | payer MEDICARE, OTHER, SELFPAY ==
[2024-04-16] VITALS (8 sets, daily range): BP systolic 140–148; BP diastolic 49–73; PULSE 59–66; RESP 16–18; TEMP 36.1–36.5; O2SAT 94–100; BMI 33.8
--- NOTE | 2024-04-16 10:01 | PRE.ANES_ITS ---
ASA Classification* ASA Classification ASA Classification: 2 Assessment & Plan Anesthesia* Anesthesia Assessment Anesthesia Assessment: Discussed sedation and/or anesthesia options, risks, benefits, and alternatives with patient/parents/legal guardian/POA. Questions invited. The patient/parents/legal guardian/POA seems to understand and agrees to proceed with anesthesia plan. Reviewed the physical assessment, medical history, allergy history and patient home medications list prior to surgery/procedure/anesthetic and documented any changes. Performed airway and anesthesia risk assessments. Anesthesia Type Anesthesia Type: General Anesthesia Focused Assessment* Airway Assessment Mouth opens: >3 cm Mallampati Score: II Focused Labs Anesthesia Preop lab: CBC WBC 11.7 K/mm3 (4.4-11.0) H 04/04/24 06:52 RBC 4.49 M/mm3 (4.2-5.4) 04/04/24 06:52 Hgb 13.0 g/dL (12.0-15.0) 04/04/24 06:52 Hct 38.8 % (37-47) 04/04/24 06:52 Plt Count 210 K/mm3 (150-450) 04/04/24 06:52 CHEMISTRY Potassium 3.7 mmol/L (3.5-5.1) 04/04/24 06:52 Sodium 135 mmol/L (136-145) L 04/04/24 06:52 BUN 13 mg/dL (7-18) 04/04/24 06:52 Creatinine 0.70 mg/dL (0.55-1.02) 04/04/24 06:52 Glucose 131 mg/dL (74-106) H 04/04/24 06:52 POC Glucose 138 mg/dL (74-106) H 04/04/24 07:34 TSH 5.550 uIU/mL (0.358-3.740) H 03/17/24 08:46 COAG Pre-Assessment Diagnosis/Proposed Procedure Planned Operative Procedure(s): revision anterior repair possible cysto Anesthesia History 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 When Was Last Pacemaker Check QUESTION #4 FULL TEXT: You/Your Family Experience fever (hyperthermia) with Anesthesia Last Oral Intake Last Oral intake: Last Oral Intake NPO since Meds taken in AM with sips of water? Meds patient instructed to take am of surgery PONV PONV - network technology instructor: PONV - network technology instructor Female Yes 04/14/24 13:33 HX of Motion Sickness No 04/14/24 13:33 HX of N/V After Surgery No 04/14/24 13:33 Non-Smoker Yes 04/14/24 13:33 Duration of Surgery greater No 04/14/24 13:33 than 60 minutes Number of Risk Factors 2 04/14/24 13:33 PONV Score Moderate Risk 04/14/24 13:33 Height & Weight Height & Weight: Anesthesia: Height & Weight Height 5 ft 2 in 04/03/24 11:35 Respiratory Assessment Respiratory Assessment - network technology instructor: Respiratory Tract Infection Hx - network technology instructor Hx Respiratory Tract Infection No 04/14/24 13:33 STOP Sleep Apnea STOP Sleep Apnea - network technology instructor: STOP Sleep Apnea - network technology instructor Hx Hypertension Yes: CONTROLLED WITH MED 04/14/24 13:33 Hx Sleep Apnea No 04/14/24 13:33 CPAP BIPAP Do you snore loudly (louder No 04/14/24 13:33 than talking or can be heard Do you often feel tired/ No 04/14/24 13:33 fatigued/ sleepy during daytime? Has anyone observed you stop No 04/14/24 13:33 breathing during sleep? STOP Results Negative 04/14/24 13:33 QUESTION #5 FULL TEXT : Do you snore loudly (louder than talking or can be heard through closed doors)? 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 Specify any problems Hx of Preganancy in last 3 N/A 04/14/24 13:33 Months Nurse Filling Out Transfusion NBUCHER 04/14/24 13:33 & Questions: Date: 04/14/24 04/14/24 13:33 Time: 13:34 04/14/24 13:33 Patient unable to answer at this time (ie. 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 Rectocele Post-menopausal Syncope Dietary restriction Wears glasses Wears partial dentures Diabetes Arthritis Bladder disease High cholesterol Restless legs History of hiatal hernia Diverticulosis Gastric reflux Non-smoker Leg cramps History of pain when walking Home Medications ?Medication ?Instructions ?Recorded ?Last Taken ?Type acidophilus 100 million 1 cap PO DAILY 01/09/22 04/02/24 History cell-pectin, citrus 10 mg capsule meloxicam 15 mg tablet (Mobic) 15 mg PO DAILY 01/09/22 04/13/24 History omeprazole 20 mg capsule,delayed 20 mg PO DAILY 01/09/22 04/03/24 History release rosuvastatin 5 mg tablet (Crestor) 5 mg PO QHS 01/09/22 04/02/24 History vibegron 75 mg tablet (Gemtesa) 75 mg PO DAILY 01/09/22 04/02/24 History vit C 250 mg-vit E 90 mg-zinc 40 2 tab PO DAILY 01/09/22 04/02/24 History mg-copper 1 an-[id number]-roymmv capsule (PreserVision AREDS-2) coenzyme Q10 100 mg capsule (Co 100 mg PO DAILY 02/26/23 04/02/24 History Q-10) metformin 500 mg tablet 1,000 mg PO DAILY 02/26/23 04/13/24 History prevagen 1 tab PO DAILY 03/14/23 04/02/24 History glimepiride 1 mg tablet 1 mg PO DAILY 03/12/24 04/02/24 History hydralazine 25 mg tablet 25 mg PO BID 03/12/24 04/03/24 History ondansetron 8 mg disintegrating 8 mg PO Q8H PRN nausea and 04/03/24 Unknown Rx tablet vomiting #10 tabs polyethylene glycol 3350 17 17 g PO DAILY PRN constipation 04/03/24 Unknown History gram/dose oral powder (Miralax) tramadol 50 mg tablet 50 mg PO Q8H PRN pain 3 days #10 04/03/24 Unknown Rx tabs tramadol 50 mg tablet 50 mg PO TID PRN PRN Pain Score 04/03/24 Unknown Rx 1-5 3 days #10 tabs Allergy/AdvReac Type Severity Reaction Status Date / Time prednisone Allergy Rash Verified 04/14/24 13:30 oxycodone AdvReac Intermediate Other Verified 04/14/24 13:30 Surgical History History of thyroidectomy History of bladder repair surgery (~02/2023) History of cystoscopy Hx of total knee arthroplasty History of esophagogastroduodenoscopy (EGD) Hx of colonoscopy Hx of tubal ligation Hx of hysterectomy Social History Smoking Status: Never smoker Review of Systems (Anesthesia) ROS Narrative System reviewed and no additional complaints, except as documented.
[2024-04-16] MEDS: 0.9% Normal Saline (1000mL) 1,000 ML 15 ML IV (10:45)
[2024-04-16 11:13] LABS: Bedside Glucose 109 mg/dL (74-106)
[2024-04-16] MEDS: Cefazolin 2 GM in Syringe IV (12:02)
--- NOTE | 2024-04-16 12:32 | DCINST_ITS ---
Discharge Instructions Diet Discharge Diet: No restrictions Activity Discharge Activity: May Shower (No tub bathing, swimming or hot tubs) Lifting Restrictions: 5 pounds, no pushing, pulling, exercise or strenuous activity Additional Activity Instructions:: No intercourse Dressing / Incision Call your doctor if your incision/area has: Continuous Slow Oozing, Sudden Increased Bleeding, Increased Pain/ Swelling and Foul Smelling Discharge Call your doctor if you observe: Fever of 101 or Higher, Inability to urinate and Inability to have a bowel movement Suture Line Care: Avoid Pulling/Pushing Follow Up Care Please Follow Up With: Lizeth Castillo MD When: In the office in 1 week Test Results: Test results from this visit will be discussed in further detail at your follow- up appointment, if applicable. Discharge Plan Admission Attending Provider: Lizeth Castillo Primary Care Provider: Cesilia Hernandez Instructions Print Language: [place] Discharge Orders/Prescriptions Prescriptions: New cephalexin 500 mg capsule 500 mg PO Q12 3 Days Qty: 6 0RF Continued meloxicam [Mobic] 15 mg Tablet 15 mg PO DAILY omeprazole 20 mg Capsule,Delayed Release(Dr/Ec) 20 mg PO DAILY rosuvastatin [Crestor] 5 mg Tablet 5 mg PO QHS acidophilus-pectin, citrus 100 million cell-10 mg Capsule 1 cap PO DAILY PreserVision AREDS-2 250-90-40-1 mg Capsule 2 tab PO DAILY Gemtesa 75 mg Tablet 75 mg PO DAILY coenzyme Q10 [Co Q-10] 100 mg capsule 100 mg PO DAILY metformin 500 mg tablet 1,000 mg PO DAILY prevagen 1 tab PO DAILY hydralazine 25 mg tablet 25 mg PO BID glimepiride 1 mg tablet 1 mg PO DAILY tramadol 50 mg Tablet 50 mg PO TID PRN PRN (Reason: Pain Score 1-5) 3 Days Qty: 10 0RF ondansetron 8 mg tablet,disintegrating 8 mg PO Q8H PRN (Reason: nausea and vomiting) Qty: 10 0RF tramadol 50 mg tablet 50 mg PO Q8H PRN (Reason: pain) 3 Days Qty: 10 0RF polyethylene glycol 3350 [Miralax] 17 gram/dose powder 17 g PO DAILY PRN (Reason: constipation) Referrals / Follow Up: Cesilia Hernandez MD [Primary Care Provider] - Disposition Disposition (needs filled in before D/C Order can be placed): Home, Self Care
--- NOTE | 2024-04-16 12:34 | PCM.OPRPT ---
Operative Report (Standard) Operative Information Date of Procedure: 04/16/24 Pre-Operative Diagnosis: Dehiscence of anterior repair, over repair of apical support, incontinence Post-Operative Diagnosis: Same Surgery/Procedure Performed: Cystoscopy, closure of anterior vaginal wall paramedical aide: Yes Wireless Development Manager: Kiki Worthington Tasks completed by fast food assistant restaurant manager: Retracting Additional materials assistant?: No Type of Anesthesia: General RN Documented Start/Stop Times: Operation Date: 04/16/24 11:40 Case Time Into Pre-Op 04/16/24 10:00 Out of Pre-Op 04/16/24 11:53 Anesthesia Start 04/16/24 11:56 Into Room 04/16/24 11:56 Procedure Start 04/16/24 12:12 Procedure End 04/16/24 12:27 Procedure Start Time: :12 Procedure Stop Time: : Select all DRAINS/GRAFTS/IMPLANTS that apply: None Estimated Blood Loss: 5cc Specimen collected: No Description of surgery: The patient is a 68-year-old female who underwent an anterior repair with bilateral sacrospinous ligament fixation 2 weeks ago. She reported to the office last week that she was having significant and severe urinary incontinence. When I saw her in the office in follow-up on Saturday, I treated her for acute vaginitis, determined that there was likely an overcorrection in her apical repair causing incontinence and there was a small dehiscence in the incision at the bladder neck approximately 1 cm in size. The decision was made to treat the vaginitis and bring her to surgery for relaxation of the support of the bladder neck. Informed consent was obtained. She was taken to the operating room and placed on the operating room table. Anesthesia monitored the head, neck, airway, IV access and vital signs throughout the case. Once anesthesia was appropriately administered, she was placed into exaggerated dorsolithotomy and Trendelenburg position. She was prepped and draped in usual sterile fashion. A 16 Belgian Waldron catheter was inserted and the bladder was drained. On further inspection, the suture in the midline through the dermis and the anterior vaginal wall at the area of the bladder neck head dehisced already and the bladder neck was relaxed and in normal position. The incision dehisced completely all the way to the apex and the dermis was visible. Granulation tissue was forming. At this time she was placed in a flat position and the Waldron catheter was removed. The cystoscope was inserted through the urethra under direct visualization into the urinary bladder. Her anatomy appeared normal with no evidence of cystocele, with good position of the ureteral orifices, and the bladder neck was not open. On exiting of the bladder with the cystoscope, the area of the mid urethral sling was visible and adequately closed on the urethra as expected. The decision was made not to adjust the support. I removed the cystoscope and placed the Waldron catheter to straight drain once more. I brought the dehisced vaginal mucosa together in interrupted fashion with 3-0 PDS sutures. Approximately 5 or 6 stitches were placed. At this time there was good hemostasis and support with adequate drainage for the dehisced incision. She was then awakened and taken to the recovery room in good condition. There were no complications during this procedure. Surgical Findings: Vaginal incision dehiscence Complications Complications: No Admit VTE Documentation VTE Present on Admission: Yes VTE Mechan Device Prophylaxis: SCD's VTE Pharm Prophylaxis ordered?: No Reason prophylaxis not ordered: Treatment Not Indicated
--- NOTE | 2024-04-16 12:38 | PCM.POST.ANE ---
Anesthesia: Postop Eval I Current Vital Signs Temperature: 97.7 F Pulse Rate: 66 Blood Pressure: 144/73 Respiratory Rate: 16 Pulse Ox: 98 Oxygen Delivery Method: Room Air Assessment Airway patent: Yes Spontaneous unlabored respirations: Yes Mental status: Awake and Calm nausea: No Vomiting: No Anesthesia Complication: No Fluid Hydration Crystalloid volume administer (ml): 300 Total IV fluid infused: 300 Progress Note Anesthesia document: Postop Eval 1 completed: Yes
[2024-04-16 13:03] LABS: Bedside Glucose 107 mg/dL (74-106)
--- NOTE | 2024-04-16 16:10 | POSTOPAN2_ITS ---
Anesthesia Postop Eval I Sum Postop Eval Completion status Anesthesia document: Postop Eval 1 completed: Yes Anesthesia Postop Eval I Summary Anesthesia Postop Eval I Summary: Anesthesia Postop Eval I: Assessment Summary Airway patent Yes 04/16/24 12:39 [email or web address] Spontaneous unlabored Yes 04/16/24 12:39 SHAFT [email or web address] respirations Mental status Awake,Calm 04/16/24 12:39 [email or web address] [email or web address] nausea No 04/16/24 12:39 SHAFT HEADMAN.GDOTT Vomiting No 04/16/24 12:39 SHAFT [email or web address] Anesthesia Postop Eval I: Fluid Summary Crystalloid volume administer 300 04/16/24 12:39 SHAFT [email or web address] (ml) Colloids volume administered ( ml) Blood Product volume administered (ml) Total IV fluid infused 300 04/16/24 12:39 SHAFT [email or web address].GDOTT Anesthesia Postop Eval I: Summary Notes Anesthesia Complication No 04/16/24 12:39 SHAFT [email or web address].GDOTT Anesthesia Complication Comment: Post-operative progress note Anesthesia: Postop Eval II Evaluation Mental status: Awake and Calm Pain Level: 1 nausea: No Vomiting: No Complications Anesthesia Complication: No
--- NOTE | 2024-04-16 16:10 | PCM.POSTANE2 ---
Anesthesia Postop Eval I Sum Postop Eval Completion status Anesthesia document: Postop Eval 1 completed: Yes Anesthesia Postop Eval I Summary Anesthesia Postop Eval I Summary: Anesthesia Postop Eval I: Assessment Summary Airway patent Yes 04/16/24 12:39 [email or web address] [email or web address] Spontaneous unlabored Yes 04/16/24 12:39 COPY [email or web address].GDOTT respirations Mental status Awake,Calm 04/16/24 12:39 COPY [email or web address] nausea No 04/16/24 12:39 COPY [email or web address].GDOTT Vomiting No 04/16/24 12:39 COPY [email or web address] Anesthesia Postop Eval I: Fluid Summary Crystalloid volume administer 300 04/16/24 12:39 COPY [email or web address] (ml) Colloids volume administered ( ml) Blood Product volume administered (ml) Total IV fluid infused 300 04/16/24 12:39 COPY [email or web address] Anesthesia Postop Eval I: Summary Notes Anesthesia Complication No 04/16/24 12:39 COPY [email or web address] Anesthesia Complication Comment: Post-operative progress note Anesthesia: Postop Eval II Evaluation Mental status: Awake and Calm Pain Level: 1 nausea: No Vomiting: No Complications Anesthesia Complication: No
== END 2024-04-16 13:53 | disposition home or self-care (01) ==
LOC: SDC 09:55 → AC 09:56
PROVIDERS: PCP Internal Medicine Geriatric Medicine; Referring Provider Urology; Visit Provider Urology
PROC: (CPT 57260; principal; 2024-04-16 11:25)
DX: N76.0 Acute vaginitis (principal); E11.9 Type 2 diabetes mellitus without complications; T81.31XA Disruption of external operation (surgical) wound, not elsewhere classified, initial encounter; N39.46 Mixed incontinence; Z90.710 Acquired absence of both cervix and uterus; Z98.51 Tubal ligation status
CPT/HCPCS: 57240; 00942; 82962; J2405